=== PATIENT | female | born 1950 | race Hispanic/Latino ===

== ENCOUNTER 2020-03-22 21:08 | Emergency (ER) | payer BC, OTHER ==
[~2020-03-22] VITALS: Ht 157.5 cm; Wt 72.6 kg
[2020-03-22 21:55] LABS: PLATELET COUNT 286 K/uL (152-353)
[2020-03-22 21:59] LABS: POTASSIUM 3.9 mmol/L (3.6-5.2)
[2020-03-23 01:56] VITALS: BP 179/68; TEMP 97.9
== END 2020-03-23 01:56 | disposition short-term general hospital (02) ==
LOC: ED 21:08
DX: N20.1 Calculus of ureter (principal); D72.828 Other elevated white blood cell count; Z79.2 Long term (current) use of antibiotics
CPT/HCPCS: 80053; 81000; 83605; 85027; 87040; 96360; 96365; 96375; 99284; J0696; J1885; J2405